=== PATIENT | female | born 1980 | race African-American/Black ===

== ENCOUNTER 2023-09-07 09:14 | Emergency (ER) | payer OTHER, SELFPAY ==
--- NOTE | 2023-09-07 09:20 | ED.URI ---
HPI - URI/Sore Throat General Chief Complaint: Upper Respiratory Infection Stated Complaint: fever,sore throat Time Seen by Provider: 09/07/23 09:39 Source: patient and RN notes reviewed Mode of arrival: ambulatory Limitations: no limitations History of Present Illness HPI Narrative: 42-year-old female presents with concern for fever, sore throat, body aches, headache. Reports symptoms started on Wednesday. MD elicited complaint: fever and sore throat Related Data Allergies Allergy/AdvReac Type Severity Reaction Status Date / Time No Known Allergies Allergy Verified 09/07/23 09:47 Review of Systems Review of Systems: CONSTITUTIONAL: Reports malaise, fever. EYES: Denies visual changes, redness, or discharge. ENT: Denies rhinorrhea, congestion, sinus pain, otalgia reports sore throat. CARDIOVASCULAR: Denies chest pain, palpitations, or edema. RESPIRATORY: Denies cough. Denies dyspnea. GASTROINTESTINAL: Denies abdominal pain, vomiting, diarrhea. Reports nausea SKIN: Denies rash or itching. MUSCULOSKELETAL: Reports myalgia. NEUROLOGIC: Reports headache. All systems reviewed & are unremarkable except as noted in HPI and below PMFSH Comments At time of signature, agree with nursing past medical, surgical, social and family history. There is no relevant family history pertinent to the presenting complaint Exam Narrative: GENERAL: Well-appearing, well-nourished, and in no acute distress. HEAD: Normocephalic EYES: PERRLA, conjunctivae clear ENT: Nares clear. Mucous membranes moist. TM pearly shaw with dull light reflex bilaterally; no tragal tenderness. Oropharynx erythematous without lesions. Tonsils not enlarged and without exudate, no drooling, no hoarseness, no trismus, uvula midline. NECK: Supple. No lymphadenopathy CHEST: Clear to auscultation, breath sounds equal. No wheezing, rhonchi, rales, or stridor. No respiratory distress, speaks in full sentences. HEART: Regular rate and rhythm. No murmur heard. SKIN: Warm, dry, no rash. NEURO: Alert and oriented x3. PSYCH: Normal mood and affect Course Course Emergency Course: Patient is aware of diagnosis, understands and agrees to treatment plan. Anticipatory guidance given. Patient agrees to follow-up as directed and is aware of reasons to seek care at the emergency department. Portions of this record may have been created with voice recognition software Level of Care: Express Care Visit Vital Signs Vital signs: Reviewed. MDM - URI/Sore Throat MDM Narrative Medical decision making narrative: Differential diagnosis considered: Navas virus, strep pharyngitis, allergic rhinitis, upper respiratory tract infection, sinusitis, rhinosinusitis, nasopharyngitis. viral pharyngitis, otitis media, otitis externa, pneumonia, bronchitis, viral cough syndrome, viral syndrome, and influenza. Exam findings show no acute concerns or changes; patient is non-toxic appearing and is in no distress. Patient is appropriate for outpatient treatment and follow-up. Lab Data Attestation: I reviewed the patient's lab results. Critical Care Time Critical Care Time Critical Care Time: No Discharge Plan Discharge Clinical Impression: Acute streptococcal pharyngitis Patient Disposition: Home, Self-Care Condition: Stable Instructions: Antibiotic Form, Strep Throat (ED) Additional Instructions: -Take the medication as prescribed. Throw away the toothbrush after 24hours of antibiotic. -Eat and drink things that are easy to swallow, like tea or soup, or popsicles to suck on. -Oral rinses such as: Salt water gargles and/or may use topical anesthetic (eg. Chloraseptic spray) or lozenges to relieve dryness or throat pain). -Take Tylenol and ibuprofen as needed for pain and fever as directed. -Frequent hand washing or hand medical review coordinator is one of the best ways to prevent spread of infection. -Follow up with primary care provider in 2-3 days if condition is not improving; or seek
[2023-09-07 09:36] VITALS: BP 154/107; PULSE 73; RESP 16; TEMP 36.6; O2SAT 100
[2023-09-07 09:54] LABS: EDINFLUASCREEN Negative; EDINFLUBSCREEN Negative
== END 2023-09-07 09:52 | disposition home or self-care (01) ==
PROVIDERS: Emergency Provider Nurse Practitioner
DX: J02.0 Streptococcal pharyngitis (principal); Z20.822 Contact with and (suspected) exposure to COVID-19
CPT/HCPCS: 87426; 87804; 87880; 99203; G0463

== ENCOUNTER 2024-09-20 17:40 | Emergency (ER) | payer OTHER, SELFPAY ==
[2024-09-20 17:48] VITALS: BP 154/72; PULSE 71; RESP 18; TEMP 36.8; O2SAT 100
--- NOTE | 2024-09-20 17:48 | ED_ITS ---
HPI - General Adult General Chief complaint: Skin/Abscess/Foreign Body Stated complaint: Rash Source: patient Mode of arrival: ambulatory Limitations: no limitations History of Present Illness HPI narrative: Pt is a 43 y/o female presenting with c/o pruritic rash to extremities, neck. Rash began after pulling weeds a few days ago. Tx initiated OBSERVATION ASSISTANT includes application of calamine lotion, PO benadryl without improvement in sx. No similar rash among household members. No recent travel. No recent abx use. No new foods. No new hygiene products. No additional complsints. Related Data Allergies Allergy/AdvReac Type Severity Reaction Status Date / Time No Known Allergies Allergy Verified 09/20/24 17:46 Review of Systems Review of Systems: CONSTITUTIONAL: Denies body aches, fever, chills, or sweats. EYES: Denies visual changes, redness, or discharge. ENT: Denies rhinorrhea, congestion, sore throat, or otalgia. CARDIOVASCULAR: Denies chest pain, palpitations, or edema. RESPIRATORY: Denies cough or dyspnea. GASTROINTESTINAL: Denies abdominal pain, nausea, vomiting, or diarrhea. GENITOURINARY: Denies dysuria or hematuria. SKIN: Reports rash, itching MUSCULOSKELETAL: Denies back pain, joint pain, or myalgia. NEUROLOGIC: Denies headache, numbness, tingling, or weakness. PSYCH: Denies depression or anxiety. All systems reviewed & are unremarkable except as noted in HPI and below Exam Narrative: GENERAL: Well-appearing, well-nourished, and in no acute distress. HEAD: Normocephalic, atraumatic. EYES: EOMI. No redness or drainage. Conjunctivae normal. ENT: Mucous membranes pink and moist. Nares clear. No rhinorrhea. TMs normal bilaterally. Throat normal. Uvula midline. NECK: Normal AROM. Supple. CHEST: No respiratory distress. HEART: Regular rate Normal peripheral pulses. EXTREMITIES: Normal range of motion. SKIN: Warm, dry. Capillary refill normal. Normal skin turgor. Scattered erythematous, papulovesicular eruptions noted to extremities, L. side of neck. NO evidence of secondary bacterial skin infection. NEURO: No focal deficits. Alert and oriented x3. Gait steady. PSYCH: Normal affect. No signs of depression or anxiety. Course Course Level of Care: Express Care Visit Discharge Plan Discharge Clinical Impression: Elevated blood pressure reading in office without diagnosis of hypertension Contact dermatitis Qualifiers: Contact dermatitis type: allergic Contact dermatitis trigger: non-food plants Qualified Code(s): L23.7 - Allergic contact dermatitis due to plants, except food Patient Disposition: Home Condition: Stable Instructions: Poison Magi (ED) Additional Instructions: Go straight to ER should your symptoms become worse or should any new symptoms develop Patient Language: Uzbek Prescriptions: New prednisone 20 mg tablet 20 mg PO DAILY Qty: 18 0RF Rx Instructions: Take 3 tabs x 3 days then 2 tabs x 3 days then 1 tab x 3 days Follow-up/Referrals: PHYSICIAN,MAINTENANCE MECHANIC 2ND SHIFT [Primary Care Provider] - 09/20/24 Time of Disposition: 17:54
== END 2024-09-20 18:08 | disposition home or self-care (01) ==
PROVIDERS: Emergency Provider Registered Nurse
DX: R03.0 Elevated blood-pressure reading, without diagnosis of hypertension (principal); L23.7 Allergic contact dermatitis due to plants, except food
CPT/HCPCS: 99213; G0463

== ENCOUNTER 2024-11-15 18:11 | Emergency (ER) | payer OTHER, SELFPAY ==
[2024-11-15 18:24] VITALS: BP 191/87; PULSE 68; RESP 18; TEMP 36.7; O2SAT 97
--- NOTE | 2024-11-15 18:37 | ED.HA ---
HPI - Headache General Chief Complaint: Headache Stated Complaint: Headache/Left Side Facial Pain Time Seen by Provider: 11/15/24 18:11 Source: patient Mode of arrival: ambulatory Limitations: no limitations History of Present Illness HPI Narrative: Patient is a 44-year-old female who presents with 3 days of 10/10 left-sided headache including left facial pain, with dizziness and nausea. Patient has taken aspirin with no relief. Patient also had right foot numbness today at work. Denies any vision changes. Denies any URI symptoms, fever, chills, vomiting, diarrhea. Patient was seen here 09/20/2024 and had elevated blood pressure of 154/72 at that time patient has had increased stress and concern for stroke since symptoms started. Denies any tingling or weakness in extremities. Related Data Home Medications ?Medication ?Instructions ?Recorded ?Confirmed ?Last Taken ?Type No Home Medications 11/15/24 11/15/24 Unknown History Allergies Allergy/AdvReac Type Severity Reaction Status Date / Time No Known Allergies Allergy Verified 11/15/24 18:31 Review of Systems Review of Systems: All systems reviewed & are unremarkable except as noted in HPI and below Constitutional: Constitutional: Denies body ache(s), Denies chills, Denies fatigue, Denies fever(s), Reports headache(s), Denies malaise and Denies weakness Eyes: Eyes: Denies blurry vision, Denies irritation and Denies loss of vision ENT: Denies otalgia, Reports headache(s), Denies nasal discharge, Denies sinus pain and Denies sore throat Cardiovascular: Cardiovascular: Denies chest pain, Denies irregular heart rhythm and Denies dyspnea Respiratory: Respiratory: Denies dyspnea Gastrointestinal: Gastrointestinal: Denies abdominal pain, Denies melena, Denies hematochezia, Denies diarrhea, Reports nausea and Denies vomiting Musculoskeletal: Musculoskeletal: Denies back pain, Denies myalgias and Denies arthralgias Integumentary/Breasts: Skin/Breast: Denies pruritus and Denies rash Neurologic: Reports dizziness, Reports headache(s), Denies loss of vision and Denies weakness Psychiatric: Psychiatric: Reports no additional psychiatric complaints Endocrine: Endocrine: Denies fatigue PMFSH Comments At time of signature, agree with nursing past medical, surgical, social and family history. There is no relevant family history pertinent to the presenting complaint. Exam Const: General: cooperative, healthy appearing, comfortable, no acute distress and well nourished Nutritional Appearance: well nourished Orientation/consciousness: patient oriented x3 Limitations: no limitations HENMT: Head: normal to inspection, normocephalic and atraumatic Ears: hearing grossly normal bilaterally and external ears normal Face/Nose/Sinus: Normal external nose present, normal facial exam and face symmetric Face and sinus: normal facial exam and face symmetric Mouth: Yes lip normal Eyes: General: appearance normal, both eyes and all related structures Alignment and Position: alignment normal and position normal Periorbital: periorbital findings normal Eyelids: eyelids normal Pupils: Equal, round and reactive pupils present EOM: EOMs intact bilaterally Neck: Neck: normal visual inspection, full ROM and supple Chest: Chest palpation & inspection: normal inspection of the chest Resp: Effort & Inspection: normal respiratory effort and able to speak in complete sentences Auscultation: clear to auscultation bilaterally Cardio: Rate: regular rate Rhythm: regular rhythm Heart sounds: S1 normal heart sound present and S2 normal heart sound present GI: Inspection: normal to inspection Skin: General skin exam: normal color and no rashes or lesions noted Neuro: General: patient oriented x3 and moves all extremities Cranial nerves: Yes Equal, round and reactive pupils present Cognition (Neuro): normal cognition Speech: normal speech Gait exam (Neuro): Normal gait present Motor exam (neuro): 5/5 motor strength present throughout, Normal motor muscle tone present throughout and Motor abnormalities not present Sensory Exam: normal sensation Extrem: General: normal to inspection, full ROM and no edema Psych: Appearance: grossly normal and well kempt Mental Status: mental status grossly normal Speech and movement: Normal speech and movement present Affect: normal affect Attitude: cooperative Thought process: Normal thought process present Course Course Emergency Course: Patient being transferred to [facility] for further workup and evaluation. Rule out stroke versus hypertensive crisis. Patient may need CT scan and blood work Portions of this record may have been created with voice recognition software Level of Care: Express Care Visit Vital Signs Vital signs: Vital Signs Temperature 36.7 C 11/15/24 18:24 Pulse Rate 68 11/15/24 18:24 Respiratory Rate 18 11/15/24 18:24 Blood Pressure 191/87 H 11/15/24 18:24 Pulse Oximetry 97 09/17/25 18:24 Oxygen Delivery Room Air 11/15/24 18:24 Temperature 36.7 C 11/15/24 18:24 Pulse Rate 68 11/15/24 18:24 Respiratory Rate 18 11/15/24 18:24 Blood Pressure 191/87 H 11/15/24 18:24 Pulse Oximetry 97 11/15/24 18:24 Oxygen Delivery Room Air 11/15/24 18:24 Reviewed Transfer Transfered to: [place] Transportation: Other (Private auto. Patient refused transfer by EMS) Transfer rationale: Patient being transferred to [facility] for further workup and evaluation. Rule out stroke versus hypertensive crisis. Patient may need CT scan and blood work Accepting physician: Marie WISE MDM - Headache MDM Narrative Medical decision making narrative: Patient being transferred to [facility] for further workup and evaluation. Rule out stroke versus hypertensive crisis. Patient may need CT scan and blood work Differential Diagnosis Differential diagnosis: Likely migraine, tension headache, subarachnoid hemorrhage, headache, sinusitis and other (Hypertensive crisis) Medical Records Attestation: I reviewed the patient's medical records. Discharge Plan Discharge Clinical Impression: Headache, Dizziness, Nausea Patient Disposition: Acute Care Hospital Condition: Stable Patient Language: Algerian Prescriptions: No Action No Home Medications Follow-up/Referrals: PHYSICIAN,MANAGER STAFFING [Primary Care Provider, Internal Medicine] Time of Disposition: 18:48
== END 2024-11-15 18:44 | disposition short-term general hospital (02) ==
PROVIDERS: Emergency Provider Nurse Practitioner Family
DX: R51.9 Headache, unspecified (principal); R42 Dizziness and giddiness; R11.0 Nausea
CPT/HCPCS: 99212; G0463

== ENCOUNTER 2024-11-15 18:59 | Emergency (ER) | payer OTHER, SELFPAY ==
[2024-11-15] VITALS (7 sets, daily range): BP systolic 123–219; BP diastolic 71–107; PULSE 75; RESP 18; TEMP 37.2; O2SAT 98
--- NOTE | ~2024-11-15 | CT_ITS ---
EXAMINATION: CT brain wo con DATE: 11/15/2024 19:53 INDICATION: Headache. Dental pain. TECHNIQUE: Computed tomography (CT) of the head was performed without intravenous contrast. Sagittal and coronal reconstructions were performed. The mA was adjusted according to patient size. Iterative reconstruction technique was employed. The dose-length product was 605.33 mGy-cm. COMPARISON: None FINDINGS: No acute intracranial hemorrhage, acute infarction or abnormal extra axial fluid collection. Ventricles are normal and symmetric. No mass/mass effect. Prominent mucosal thickening with near complete opacification of the visualized right maxillary sinus with thickened sclerotic archuleta consistent with chronic sinusitis. The orbits and mastoid air cells are normal. IMPRESSION: 1. Normal brain. No acute intracranial process. 2. Chronic right maxillary sinus disease. Reviewed, dictated and finalized at location A.
--- NOTE | ~2024-11-15 | CT_ITS ---
CTA NECK, CTA HEAD Clinical History: L sided WARREN Comparison: Noncontrast CT head same day TECHNIQUE: Helical images thoracic inlet to vertex 100 mL Omnipaque 350 Coronal, sagittal reformats. Multi planar MIPS CT images acquired with automatic exposure control for dose reduction DLP: 899 mGy-cm Findings: NASCET Criteria utilized CTA NECK Aortic arch: No aneurysm or dissection. Great vessel origins: No stenosis. CCAs: No stenosis. Cervical ICAs: No stenosis. Vertebral Arteries: Patent. Lung Apices: Clear. Thyroid: Unremarkable. Nodes: No enlarged nodes. Bones: No acute bony abnormality. CTA HEAD: Aneurysms: None. Intracranial ICAs: Patent, unremarkable. ACAs and their distal branches: Patent, unremarkable. A-Comm: Identified. Patent, unremarkable. MCAs and their distal branches: Patent, unremarkable. Basilar artery: Patent, unremarkable. [employer] and their distal branches: Left P1 congenitally absent; origin P-comm supply. Patent P-Comms: Identified. Patent, unremarkable. IMPRESSION: CTA NECK: 1. No acute findings. CTA HEAD: 1. No acute findings. Reviewed, dictated and finalized at location R.
--- NOTE | 2024-11-15 19:41 | ED_ITS ---
HPI - Headache General Chief Complaint: Headache Stated Complaint: headache, foot numbness Time Seen by Provider: 11/15/24 19:40 Source: patient Mode of arrival: ambulatory Limitations: no limitations History of Present Illness HPI Narrative: Patient presents from urgent care for further work up, CVA rule out. Patient complaining of a left sided headache. Found to have BP 191/87 . Also having numbness in her bilateral toes, none seem to be spared. Symptoms have caused her to toss and turn, decreased sleep. Symptoms started 4 days ago. When at urgent care 09/20/24, her BP was elevated as well and noted as elevated. No previous diagnosis of hypertension officially. She was having left sided facial pain. Had 2 episodes where she had a dizzy spell. Has been using ASA a few days ago. Nauseated earlier (thought due to aspirin), not now. No vision changes, blurred or double. No unilateral symptoms in her upper or lower extremities. No slurred speech. No fevers, chills, darinage. Headache associated with photophobia but no phonophobia. No trauma or anticoagulation. [place] like the headache was causing pain in her mouth as well. No actual dental pain but history of broken tooth. No history DM. She does not have a PCP. Drinks 1-2 beers/week. Denies any diarrhea, constipation, chest pain, shortness of breath. Lives by her self. NO one with similar symptoms. Headaches seem to be stronger at night and this is when she took the [place]. Related Data Allergies Allergy/AdvReac Type Severity Reaction Status Date / Time No Known Allergies Allergy Verified 11/15/24 18:31 [facility] Social History Social History (Updated 11/16/24 @ 22:38 by Gina Hernandez MD) Alcohol intake: current Drinks per week: 2 Alcohol use details: beers Living arrangements: alone Exam 2 Narrative: GENERAL: Well-appearing, well-nourished, and in no acute distress. HEAD: Normocephalic, atraumatic. EYES: Non injected, non icteric ENT: Nares clear, no rhinorrhea or epistaxis. Gross auditory acuity intact. NECK: Supple. No meningismus. CHEST: Speaking in full sentences. No respiratory distress. HEART: Regular rate and rhythm. . ABDOMEN: Soft, nondistended. No rigidity or guarding. Not peritoneal EXTREMITIES: Normal range of motion. No lower extremity edema. SKIN: Warm, dry, no rash. NEURO: No focal deficits. Alert and oriented. Answering questions. Following commands. Normal speech without aphasia or dysarthria. No ataxia. Sensation intact throughout. No motor drift. PSYCH: Normal mood and affect. Course Vital Signs Vital signs: Vital Signs Temperature 99.0 F 11/15/24 19:01 Pulse Rate 75 11/15/24 19:01 Respiratory Rate 18 11/15/24 19:01 Blood Pressure 166/100 H 11/15/24 19:01 Pulse Oximetry 98 11/15/24 19:01 Oxygen Delivery Room Air 11/15/24 19:01 Temperature 99.0 F 11/15/24 19:01 Pulse Rate 75 11/16/24 02:04 Respiratory Rate 18 11/16/24 02:04 Blood Pressure 127/58 L 11/16/24 02:04 Pulse Oximetry 100 11/16/24 02:04 Oxygen Delivery Room Air 11/15/24 19:01 MDM - Headache MDM Narrative Medical decision making narrative: Patient sent from for further work up/ CVA rule out due to left sided headache associated with photophobia. Found to be hypertensive there, no official diagnosis previously. In the emergency department she is afebrile that show hypertension. No leukocytosis or anemia. Only mild abnormality on the differential. Chemistry generally unremarkable. CT unremarkable. Headache cocktail of ketorolac, compazine, and diphenhydramine ordered. CTA ordered however I am notified by the nurse that her blood pressure was 219/107 with a mean arterial pressure of 139 in for this reason CT would not take her. Labetalol ordered. Rpt SBP 159mmHg. Urinalysis unremarkable, without proteinuria. Viral swab negative. Patient is reassessed at approximately 10:30 p.m.. She reports her headache is better and all of her symptoms have resolved including the numbness and tingling she was experiencing her toes. When reviewing her blood pressure trend, her systolic blood pressure has continued to trend downward on the past 4 readings. Although no previous diagnosis of hypertension, she has been hypertensive per review of the EMR and thus at this point it is reasonable to start an antihypertensive medication. Prescribed 30d course and advised follow up. Given the name of a PCP to do so. Also given Rx for OTC analgesic medications as patient stated she didn't have any and this is why she was using ASA only. Differential Diagnosis Differential diagnosis: Likely migraine, tension headache, subarachnoid hemorrhage, headache, meningitis, sinusitis, postconcussion syndrome and other (hypertensive urgency/emergency) Lab Data Attestation: I reviewed the patient's lab results. 11/15/24 19:44 11/15/24 19:44 Labs: Lab Results 11/15/24 11/15/24 Range/Units 19:44 20:47 WBC 7.1 (4.5-10.0) K/mm3 RBC 4.76 (4.2-5.4) M/mm3 Hgb 13.7 (12.0-15.0) g/dL Hct 42.5 (37.0-47.0) % MCV 89.3 (80-100) fl MCH 28.8 (26-34) pg MCHC 32.2 (32-36) g/dl RDW 14.8 H (11.5-14.5) % Plt Count 187 (150-375) k/mm3 MPV 12.0 H (7.4-10.4) fl Immature Gran % (Auto) 0.3 (0-0.5) % Neut % (Auto) 48.0 (45.5-73.1) % Lymph % (Auto) 42.5 (18.3-44.2) % [place] % (Auto) 6.5 (2.6-8.5) % Eos % (Auto) 2.0 (0-4.4) % Baso % (Auto) 0.7 (0.2-1.2) % Lymph # (Auto) 3.02 (0.9-3.2) K/mm3 [place] # (Auto) 0.5 (0.1-0.6) K/mm3 Eos # (Auto) 0.1 (0-0.3) K/mm3 Baso # (Auto) 0.1 (0.0-0.1) K/mm3 Abs Immat Gran (auto) 0.02 (0.00-0.031) K/mm3 Absolute Neuts (auto) 3.4 (1.3-6.7) K/mm3 Absolute Nucleated RBC 0.000 (0.0-0.012) K/mm3 Nucleated RBC % 0.0 (0.0-0.2) % % Immature Plt Fraction 9.1 (0.9-11.2) % Sodium 137 (137-145) mmol/L Potassium 3.9 (3.4-5.0) mmol/L Chloride 107 (98-107) mmol/L Carbon Dioxide 21 L (22-30) mmol/L Anion Gap 9 (4-12) mmol/L BUN 14 (7-17) mg/dL Creatinine 0.82 (0.7-1.0) mg/dL Estim Creat Clear Calc 75 ml/min Estimated GFR > 60 (59 - ) Glucose 90 (65-110) mg/dL Calcium 9.4 (8.4-10.2) mg/dL Total Bilirubin 0.8 (0.2-1.3) mg/dL AST 27 (14-36) U/L ALT 15 (6-35) U/L Alkaline Phosphatase 84 (38-126) U/L Total Protein 8.4 H (6.3-8.2) g/dL Albumin 4.8 (3.5-5.1) g/dL Urine Color Yellow (Yellow) Urine Appearance Clear (Clear) Urine pH 6.5 (5.0-9.0) Ur Specific [place] 1.009 (1.001-1.035) Urine Protein Negative (Negative) mg/dL Urine Glucose (UA) Negative (Negative) mg/dL Urine Ketones Negative (Negative) mg/dL Ur Blood (Man) Negative (Negative) Urine Nitrate Negative (Negative) Urine Bilirubin Negative (Negative) Urine Urobilinogen 0.2 (<2.0) mg/dL Leukocyte Esterase Rfl Negative (Negative) DEB/UL Influenza A (RT-PCR) Negative (Negative) Influenza B (RT-PCR) Negative (Negative) RSV (RT-PCR) Negative (Negative) SARS-CoV-2 RNA (RT-PCR) Negative (Negative) Imaging Data Radiologist's impression: CTA Head Stat Rad: No stenosis, dissection, aneurysm, or occlusion CTA Neck Stat Rad: Patient has a left dominant vertebral basilar system. No stenosis, dissection, aneurysm, or occlusion. Chronic right maxillary sinusitis. ECG Data EKG #1: Attestation: I personally reviewed and interpreted this ECG as follows: ECG completion date: 11/15/24 ECG completion time: 20:31 Prior ECG tracings: not available for review (No prior for comparison) Interpretation: Normal sinus rhythm at a rate of 62 beats per minute. [place] interval 171. QRS 92. QT/QTC 421/430. Good R-wave progression across the precordial leads. T-wave flattening in 3 but upright in contiguous inferior leads. No other T-wave inversions. Discharge Plan Discharge Clinical Impression: Headache, Chronic sinusitis, Hypertension Patient Disposition: Home Condition: Stable Instructions: Antibiotic Form, Hypertension (ED), General Headache (ED) Additional Instructions: Acetaminophen/Tylenol (maximum 4000 mg per day) is safe to take with NSAIDs (ibuprofen/Motrin) for pain relief. Given that you now had more than a few elevated blood pressure readings, reasonable to start you on blood pressure medication and have you follow up with your primary care physician. If you do not have 1, the name of a doctor is listed below. Return to the emergency department any new or worsening symptoms. Patient Language: Kinyarwanda Prescriptions: New ibuprofen 600 mg tablet 600 mg PO TID PRN (Reason: pain) Qty: 30 0RF acetaminophen 500 mg capsule 1,000 mg PO Q6H PRN (Reason: pain) Qty: 30 0RF hydrochlorothiazide 12.5 mg tablet 12.5 mg PO DAILY Qty: 30 0RF Follow-up/Referrals: Cornelia Yanez DO [Physician, Family Practice] PHYSICIAN,LOFTER [Primary Care Provider, Internal Medicine] Stand Alone Forms: Work/School Release IP Time of Disposition: 01:53
[2024-11-15 19:57] LABS: Hematocrit 42.5 % (37.0-47.0); Hemoglobin 13.7 g/dL (12.0-15.0); Immature Granulocyte Percent A 0.3 % (0-0.5); Immature Platelet Fraction Pct 9.1 % (0.9-11.2); Lymphocytes Absolute Auto 3.02 K/mm3 (0.9-3.2); Mean Corpuscular HGB Conc 32.2 g/dl (32-36); Mean Corpuscular Hemoglobin 28.8 pg (26-34); Mean Corpuscular Volume 89.3 fl (80-100); Nucleated Red Blood Cells Absolute Auto 0.000 K/mm3 (0.0-0.012); Nucleated Red Blood Cells Perc 0.0 % (0.0-0.2); Platelet Count Result 187 k/mm3 (150-375); Red Blood Count 4.76 M/mm3 (4.2-5.4); White Blood Count 7.1 K/mm3 (4.5-10.0)
[2024-11-15 20:09] LABS: Alanine Aminotransferase 15 U/L (6-35); Albumin Level 4.8 g/dL (3.5-5.1); Alkaline Phosphatase 84 U/L (38-126); Aspartate Amino Transferase 27 U/L (14-36); Bilirubin,Total 0.8 mg/dL (0.2-1.3); Blood Urea Nitrogen 14 mg/dL (7-17); Calcium 9.4 mg/dL (8.4-10.2); Carbon Dioxide 21 mmol/L (22-30); Chloride 107 mmol/L (98-107); Estimated CRCL calculation 75 ml/min; Estimated Glomerular Filt Rate > 60; Glucose 90 mg/dL (65-110); Potassium 3.9 mmol/L (3.4-5.0); Total Protein 8.4 g/dL (6.3-8.2)
[2024-11-15 20:17] LABS: Anion Gap 9 mmol/L (4-12); Sodium 137 mmol/L (137-145)
--- NOTE | 2024-11-15 20:26 | ECG_ITS ---
Test Date: 2024-11-15 20:31:36 Measurements Intervals [place] Rate: 62 P: 29 ND: 171 QRS: 4 QRSD: 92 T: 32 QT: 421 QTc: 430 Interpretive Statements SINUS RHYTHM SEPTAL MYOCARDIAL INFARCTION , PROBABLY OLD [40+ ms Q WAVE IN V1/V2] ABNORMAL ECG No previous ECG available for comparison Electronically Signed On 11-16-2024 07:57:30 CDT by Trevor Pavon M.D.
[2024-11-15] MEDS: ACETAMINOPHEN 500 MG TABLET 1000 MG PO (20:38)
--- NOTE | 2024-11-15 20:44 | PC.NURSE ---
Pt BP continuing to rise since arrival. EDP Dr. Hernandez made aware. No new orders at this time.
[2024-11-15] MEDS: PROCHLORPERAZINE EDISYLATE 10 MG/2 ML VIAL 5 MG IV PUSH (20:55)
[2024-11-15] MEDS: KETOROLAC 15 MG/ML VIAL (*BKC) IV PUSH (20:55)
[2024-11-15 21:19] LABS: Add Urine Microscopic? NO; Appearance Urine Clear (Clear); Glucose Urine UA Negative (Negative); Leukocyte Esterase Ur Negative LEU/UL (Negative); Nitrate Urine Negative (Negative); Specific Grav Ur 1.009 (1.001-1.035)
[2024-11-15 21:32] LABS: Influenza A QL RT-PCR Negative (Negative); Influenza B QL RT-PCR Negative (Negative); RSV RNA, RT-PCR Negative (Negative); SARS-CoV-2 RNA PCR Negative (Negative)
--- NOTE | 2024-11-15 23:06 | PC.NURSE ---
Report received from Stephy BOJORQUEZ
[2024-11-16 02:04] VITALS: BP 127/58; PULSE 75; RESP 18; O2SAT 100
== END 2024-11-16 02:11 | disposition home or self-care (01) ==
PROVIDERS: Emergency Provider Student in an Organized Health Care Education/Training Program
DX: J32.9 Chronic sinusitis, unspecified (principal); I10 Essential (primary) hypertension; Z20.822 Contact with and (suspected) exposure to COVID-19
CPT/HCPCS: 36415; 70450; 70496; 70498; 80053; 81003; 85025; 85055; 87637; 93005; 96374; 96375; 99284; A9270; J0780; J1200; J1885; J8540; Q9967